=== PATIENT | female | born 1995 | race Caucasian/White ===

== ENCOUNTER 2017-10-02 14:39 | Outpatient (CLI) | payer OTHER ==
[~2017-10-02] VITALS: Ht 165.1 cm; Wt 101.2 kg
--- NOTE | 2017-10-02 16:13 | PN ---
Triage Information Date/Time Reason for visit: Uterine contractions Weeks of Gestation 39 /Para 1/0 Hypertention: none Objective Heart Rate: 140's Contractions: None Disposition: Discharge Assessment/Plan No cervical change. No CTXs If BPP 8/8 she can be discharge and followed up in the clinic FARIHA NO M.D. Oct 02, 2017 16:13
[2017-10-02 16:17] VITALS: Ht 165.1 cm; Wt 101.2 kg
--- NOTE | 2017-10-02 16:56 | RADRPT ---
PROCEDURE: US biophysical profile. CLINICAL INDICATION: Decreased motion. The patient in labor. TECHNIQUE: Multiple sonographic images of the uterus were obtained. The images were revi ewed on a PACS workstation. COMPARISON: No prior studies are available for comparison. FINDINGS: There is a single live intrauterine gestation. heart rate is 137 beats per minute. The position is cephalic. The placenta is right lateral grade II with no abruption or previa. The BENITEZ is 13.3 cm. (Normal = 5-20 cm.) Breathing Movement: 2 Gross Body Movement: 2 Tone: 2 Qualitative Amniotic Fluid Volume: 2 TOTAL: 8 IMPRESSION: 1. The biophysical score is 8/8. RPTAT: QQ .Omar Morales MD, Date Time Electronically viewed and signed by .Omar Morales MD, on 10/02/2017 16:55 .R/
[2017-10-03] MEDS ORDERED: PREN-17 PO (04:42)
== END 2017-10-02 17:25 | disposition home or self-care (01) ==
LOC: OBG 14:39 → OBT 14:39 → L-D 14:41 → OBT 17:25 → UNDOADMIN 10-03 04:29 → L-D 10-03 04:29
PROVIDERS: ATTEND Obstetrics & Gynecology
DX: O62.9 Abnormality of forces of labor, unspecified (principal); Z3A.39 39 weeks gestation of pregnancy
CPT/HCPCS: 76818; Z7500; G0463

== ENCOUNTER 2017-10-03 03:53 | Inpatient (IN) | payer OTHER ==
[~2017-10-03] VITALS: Ht 165.1 cm; Wt 101.5 kg
[2017-10-03 04:16] VITALS: BP 126/78; PULSE 74; RESP 20
[2017-10-03] MEDS ORDERED: CARBOPROST 250 MCG INJ IM PRN ×2 (04:30→21:30)
[2017-10-03] MEDS ORDERED: OXYTOCIN 30 UNITS/LR 500 ML IV SCH ×3 (04:30→10:30)
[2017-10-03] MEDS ORDERED: MISOPROSTOL 200 MCG TAB PR PRN ×2 (04:30→21:30)
[2017-10-03] MEDS ORDERED: BUTORPHANOL 2 MG INJ IV PRN (04:30)
[2017-10-03] MEDS ORDERED: IBUPROFEN 600 MG TAB PO PRN (04:30)
[2017-10-03] MEDS ORDERED: METHYLERGONOVINE 0.2 MG INJ IM PRN ×2 (04:30→21:30)
[2017-10-03] MEDS ORDERED: OXYTOCIN 30 UNITS/LR 500 ML IV PRN ×2 (04:30→21:30)
[2017-10-03] MEDS ORDERED: AMPICILLIN 2 GM/NS (PMX) 100 ML IV ONE (04:30)
[2017-10-03] MEDS ORDERED: LIDOCAINE 1% (MPF) 30 ML INJ INJ PRN (04:30)
[2017-10-03] MEDS: LACTATED RINGER'S 1,000 ML IV SCH ×3 (04:40→20:18)
[2017-10-03] MEDS ORDERED: PREN-17 PO (04:42)
[2017-10-03 04:50] LABS: BASOPHIL # 0.1 10^3/ul (0.0-0.1); BASOPHILS % 0.6 % (0.0-2.0); EOSINOPHILS # 0.2 10^3/ul (0.0-0.5); HEMATOCRIT 37.9 % (37.0-47.0); HEMOGLOBIN 12.9 g/dl (12.0-16.0); LYMPHOCYTES # 1.6 10^3/ul (0.8-2.9); MEAN CORPUSCULAR HEMOGLOBIN 29.5 pg (29.0-33.0); MEAN CORPUSCULAR VOLUME 86.7 fl (82.0-101.0); MEAN PLATELET VOLUME 10.6 fl (7.4-10.4); MONOCYTES % 8.9 % (0.0-11.0); NEUTROPHIL # 8.5 10^3/ul (1.6-7.5); NEUTROPHILS % 72.6 % (39.0-77.0); PLATELET COUNT 204 10^3/UL (140-415); RED BLOOD COUNT 4.37 10^6/ul (4.20-5.40); RED CELL DISTRIBUTION WIDTH 12.2 % (11.5-14.5); WHITE BLOOD COUNT 11.7 10^3/ul (4.8-10.8)
--- NOTE | 2017-10-03 04:58 | HP ---
Date/Time of Note Date/Time of Note DATE: 10/03/17 TIME: 04:57 OB - History Hx of Present Estimated Due Date: Oct 09, 2017 : 1 Para: 0 Care: Good Care Obstetrical Complications: None Medical Complications: None Past Family/Social History * Past Medical, Surgical, Family and Obstetric Histories reviewed from chart. OB Admission Exam Vital Signs Vital Signs Vital Signs Date Time Temp Pulse Resp B/P Pulse Ox O2 Delivery O2 Flow Rate FiO2 10/03/17 04:16 98.3 74 20 126/78 Room Air Physical Exam HEENT: WNL Heart: Rhythm Normal Lungs: Clear Abdomen: WNL Extremities: Normal Cervical Dilatation: 4cm Effacement: 100% Station: -2 Membranes: Intact Accelerations: Accelerations Present Decelerations: No Decelerations Varibility: Moderate Contractions on Admission: < 5 Minutes Apart Last 72 hours Lab Results CBC & BMP 10/03/17 04:35 OB Assessment/Plan Reason for admission: active labor Plan: Expectant Management CANDI NICK Oct 03, 2017 04:58
[2017-10-03] MEDS ORDERED: LACTATED RINGER'S 1,000 ML IV PRN (05:00)
--- NOTE | 2017-10-03 05:05 | TRIAGE ---
OB Triage Datetime Report Generated by CPN: 10/03/2017 05:05 Datetime: 10/03/2017 04:04 Stage of : OB Triage Maternal Assessment Level of Consciousness: Fully Conscious Headache: Denies Blurred Vision: No Respiratory Effort: Unlabored Nausea/Vomiting: Denies RUQ Epigastric Pain: Denies Facial Edema: None Labor Evaluation Frequency: lpaced Monitor Mode: External Quality: Moderate Resting Tone [place]: Relaxed Heart Rate FHR Baseline Rate: 130 Monitor Mode: External US Pain Assessment Pain Scale: 7 Pain Presence: Intermittent Pain Type: Contraction Pain Location: Abdomen Vaginal Exam Dilatation (cms): 4.0 Effacement (%): 90 Station: -2 Exam By: Divine galindo Membrane Status: Intact Vaginal Bleeding: Scant Cervix, Consistency: Soft Cervix, Position: Posterior Presentation 'A': Cephalic Datetime: 10/02/2017 17:35 Time of Arrival: 10/03/2017 03:50 EGA: 39.1 Arrived By: Wheelchair Arrived From: Home Chief Complaint: c/o ucs and spotting Movement: Present Contractions: Regular Time Contractions Began: 10/03/2017 01:45 Contractions: q5 Rupture of Membranes: Denies Vaginal Bleeding: Scant Vaginal Discharge: Present Recent Sexual Intercouse: Denies Abdominal Trauma: Not Applicable Patient Complaints: Contractions Time Provider Notified: 10/03/2017 04:15 Provider Notified: Dr Nation Initial Plan: EFM,SVE Datetime: 10/02/2017 16:49 Labor Evaluation Frequency: 0 Monitor Mode: External Duration (sec)2399: 0 Resting Tone [place]: Relaxed Heart Rate FHR Baseline Rate: 125 Monitor Mode: External US FHR Baseline Changes: No Baseline Change Variability: Moderate 6-25 bpm Accelerations: 15X15 Decelerations: None Category: Category I Membrane Status: Intact Datetime: 10/02/2017 16:23 Time of Arrival: 10/02/2017 14:35 EGA: 39.0 Arrived By: Ambulatory Arrived From: Home Chief Complaint: NST, BPP Movement: Present Contractions: Denies/Absent Contractions: 0 Rupture of Membranes: Denies Vaginal Bleeding: None Vaginal Discharge: Denies Recent Sexual Intercouse: Denies Abdominal Trauma: Not Applicable Patient Complaints: None Time Provider Notified: 10/02/2017 16:40 Provider Notified: LENO Initial Plan: NST reactive, Datetime: 10/02/2017 16:15 Labor Evaluation Frequency: 0 Monitor Mode: External Duration (sec)2399: 0 Resting Tone [place]: Relaxed Heart Rate FHR Baseline Rate: 125 Monitor Mode: External US FHR Baseline Changes: No Baseline Change Variability: Moderate 6-25 bpm Accelerations: 15X15 Decelerations: None Category: Category I Datetime: 10/02/2017 15:53 Vaginal Exam Dilatation (cms): 2.0 Effacement (%): 50 Station: -2 Exam By: Marcie J RN Datetime: 10/02/2017 15:41 Labor Evaluation Frequency: 5-9 Monitor Mode: External Duration (sec)2399: 50-90 Quality: Mild Pattern: Normal: <= 5 Contractions in 10 Minutes Resting Tone [place]: Relaxed Heart Rate FHR Baseline Rate: 130 Monitor Mode: External US FHR Baseline Changes: No Baseline Change Variability: Moderate 6-25 bpm Accelerations: 15X15 Decelerations: None Category: Category I Pain Assessment Pain Scale: 3 Pain Presence: Intermittent Pain Type: Ache Pain Location: Back Pain Goal: 0 Pain Relief Measures: Comfort Measures Pain Assessment Comments: Pt states she only has some pain on L side if she lays flat Datetime: 10/02/2017 15:24 Labor Evaluation Frequency: 3-5 Monitor Mode: External Duration (sec)2399: 50-60 Quality: Mild Pattern: Normal: <= 5 Contractions in 10 Minutes Resting Tone [place]: Relaxed Heart Rate FHR Baseline Rate: 120 Monitor Mode: External US FHR Baseline Changes: No Baseline Change Variability: Moderate 6-25 bpm Accelerations: 15X15 Decelerations: None Category: Category I Membrane Status: Intact Datetime: 10/02/2017 15:00 Assessment Type: Triage Maternal Assessment Level of Consciousness: Fully Conscious DTR's/Clonus: DTRs 2+; No Clonus Headache: Denies Blurred Vision: No Respiratory Effort: Unlabored; Regular Rhythm; Equal Expansion Breath Sounds, Left: Clear and Equal Breath Sounds, Right: Clear and Equal Nausea/Vomiting: Denies RUQ Epigastric Pain: Denies Lower Extremities Edema: Bilateral Lower Extremities Degree: 1+ Upper Extremities Edema: None Degree: None Facial Edema: None Fall Risk Assessment History of Falling: (0) No Secondary Diagnosis: (0) No Ambulatory Aid: (0) Bedrest/Nurse Assist IV Therapy: (0) No Gait: (0) Normal/Bedrest/Immobile Mental Status: (0) Oriented to Own Ability Fall Score: 0 Fall Risk Score Definition: No Risk: No action required Datetime: 10/02/2017 14:53 Stage of : OB Triage
[2017-10-03 05:13] LABS: INR 0.95; PARTIAL THROMBOPLASTIN TIME 25.6 Sec (25.0-35.0); PROTIME 12.7 Sec (12.2-14.2)
[2017-10-03 05:46] LABS: BARBITURATES Negative (NEGATIVE); BENZODIAZEPINES Negative (NEGATIVE); CANNABINOIDS Negative (NEGATIVE); COCAINE Negative (NEGATIVE); OPIATES Negative (NEGATIVE)
[2017-10-03] MEDS ORDERED: FENTAnyl 2MCG/ML-ROPIV 0.2% 100 ML ONE (05:52)
[2017-10-03] MEDS ORDERED: NALOXONE (0.4 MG/ML) INJ IV PRN (06:30)
[2017-10-03] MEDS: AMPICILLIN 1 GM/NS (PMX) 50 ML IV SCH ×3 (09:24→17:27)
[2017-10-03] MEDS: FENTAnyl 2MCG/ML-ROPIV 0.2% 100 ML BAG EPI SCH ×2 (09:25→12:46)
--- NOTE | 2017-10-03 19:23 | LDN ---
Date/Time of Note Date/Time of Note DATE: 10/03/17 TIME: 19:22 Delivery Summary term preg. NSD Placenta Delivered: Spontaneously Meconium: none Episiotomy: No Perineal laceration: 2 Anesthesia type: Epidural Estimated blood loss: 300 Sponge & Needle done & correct: Yes All needle counts correct: Yes Any foreign bodies felt in the: No Problems: RYAN BURR MD Oct 03, 2017 19:23
[2017-10-03] MEDS ORDERED: LACTATED RINGER'S 1,000 ML IV* SCH (21:10)
[2017-10-03 21:25] VITALS: BP 110/69; PULSE 86; RESP 18
[2017-10-03] MEDS ORDERED: WITCH HAZEL/GLYCERIN PAD PR PRN (21:30)
[2017-10-03] MEDS ORDERED: DIPHENHYDRAMINE 25 MG CAP PO PRN (21:30)
[2017-10-03] MEDS ORDERED: MAGNESIUM HYDROXIDE 30ML CUP PO PRN (21:30)
[2017-10-03] MEDS ORDERED: SENNA/DOCUSATE NA (8.6MG/50MG) TAB PO PRN (21:30)
[2017-10-03] MEDS ORDERED: BENZOCAINE 20% 56 ML SPRAY TOP PRN (21:30)
[2017-10-03] MEDS ORDERED: ACETAMINOPHEN 325 MG TAB PO PRN (21:30)
[2017-10-03] MEDS ORDERED: ZOLPIDEM 5 MG TAB PO PRN (21:30)
[2017-10-03] MEDS ORDERED: LANOLIN 7 GM TUBE TOP PRN (21:30)
[2017-10-03] MEDS ORDERED: HYDROCODONE/APAP (5/325) TAB PO PRN (21:30)
[2017-10-03] MEDS: OXYTOCIN 30 UNITS/LR 500 ML IV SCH (22:35)
[2017-10-03 23:35] VITALS: BP 113/65; PULSE 81; RESP 20
[2017-10-03] MEDS: IBUPROFEN 800 MG TAB PO SCH (23:37)
[2017-10-04 04:00] VITALS: BP 100/63; PULSE 86; RESP 18
[2017-10-04] MEDS: IBUPROFEN 800 MG TAB PO SCH ×3 (06:00→18:09)
[2017-10-04] MEDS: OXYTOCIN 30 UNITS/LR 500 ML IV SCH (07:39)
[2017-10-04 07:50] VITALS: BP 113/65; PULSE 108; RESP 20
[2017-10-04 08:59] LABS: BASOPHILS % 0.3 % (0.0-2.0); EOSINOPHILS # 0.1 10^3/ul (0.0-0.5); EOSINOPHILS % 0.8 % (0.0-7.0); HEMATOCRIT 31.6 % (37.0-47.0); HEMOGLOBIN 10.6 g/dl (12.0-16.0); LYMPHOCYTES # 1.5 10^3/ul (0.8-2.9); LYMPHOCYTES % 9.1 % (15.0-51.0); MEAN CORPUSCULAR HEMOGLOBIN 29.2 pg (29.0-33.0); MEAN CORPUSCULAR HGB CONC 33.5 g/dl (32.0-37.0); MEAN CORPUSCULAR VOLUME 87.1 fl (82.0-101.0); MEAN PLATELET VOLUME 10.6 fl (7.4-10.4); MONOCYTE # 1.5 10^3/ul (0.3-0.9); MONOCYTES % 9.2 % (0.0-11.0); NEUTROPHIL # 12.7 10^3/ul (1.6-7.5); NEUTROPHILS % 79.7 % (39.0-77.0); PLATELET COUNT 183 10^3/UL (140-415); RED BLOOD COUNT 3.63 10^6/ul (4.20-5.40); RED CELL DISTRIBUTION WIDTH 12.4 % (11.5-14.5)
[2017-10-04 11:57] VITALS: BP 93/78; PULSE 101; RESP 16
[2017-10-04] MEDS ORDERED: INFLUENZA VIRUS VACCINE 0.5 ML SYG IM* ONE (12:30)
[2017-10-04 16:14] VITALS: BP 98/62; PULSE 79; RESP 16
--- NOTE | 2017-10-04 17:14 | QN ---
Documentation Comment pd1 pt doing well vss exam wnl a/p ppd1 continue care HANSA FRIED MD Oct 04, 2017 17:14
[2017-10-04 19:45] VITALS: BP 107/64; PULSE 86; RESP 18
[2017-10-05] MEDS: IBUPROFEN 800 MG TAB PO SCH ×3 (01:07→12:18)
[2017-10-05 04:00] VITALS: BP 101/60; PULSE 87; RESP 18
[2017-10-05 07:50] VITALS: BP 113/62; PULSE 94; RESP 16
--- NOTE | 2017-10-05 08:06 | DS ---
Date/Time of Note Date/Time of Note DATE: 10/05/17 TIME: 08:05 Discharge Summary Admission/Discharge Info Admit Date/Time Oct 03, 2017 at 04:42 Discharge Date/Time Discharge Diagnosis term preg. Patient Condition: Stable Hospital Course unremarkable Home Meds Reported Medications Vit No.78/Iron/FA (Prenatabs FA Tablet) 1 Each Tablet, 1 EACH PO DAILY , TAB 10/03/17 Primary Care Provider Care Physician No Primary Pending Labs Laboratory Tests Test 10/04/17 08:15 White Blood Count 16.010^3/ul (4.8-10.8) Red Blood Count 3.6310^6/ul (4.20-5.40) Hemoglobin 10.6g/dl (12.0-16.0) Hematocrit 31.6% (37.0-47.0) Mean Corpuscular Volume 87.1fl (82.0-101.0) Mean Corpuscular Hemoglobin 29.2pg (29.0-33.0) Mean Corpuscular Hemoglobin Concent 33.5g/dl (32.0-37.0) Red Cell Distribution Width 12.4% (11.5-14.5) Platelet Count 14335^3/UL (140-415) Mean Platelet Volume 10.6fl (7.4-10.4) Neutrophils % 79.7% (39.0-77.0) Lymphocytes % 9.1% (15.0-51.0) Monocytes % 9.2% (0.0-11.0) Eosinophils % 0.8% (0.0-7.0) Basophils % 0.3% (0.0-2.0) Nucleated Red Blood Cells % 0.0/100WBC (0.0-0.0) Neutrophils # 12.710^3/ul (1.6-7.5) Lymphocytes # 1.510^3/ul (0.8-2.9) Monocytes # 1.510^3/ul (0.3-0.9) Eosinophils # 0.110^3/ul (0.0-0.5) Basophils # 0.010^3/ul (0.0-0.1) Nucleated Red Blood Cells # 0.010^3/ul (0.0-0.0) RYAN BURR MD Oct 05, 2017 08:06
[2017-10-05] MEDS ORDERED: VARICELLA VACCINE LIVE/PF 1,350 UNIT/0.5 ML ML SC* ONE (09:00)
[2017-10-05] MEDS ORDERED: MEASLES,MUMPS,RUBELLA VACCINE INJ SC* ONE (09:00)
[2017-10-05] MEDS ORDERED: DIPHTH/TET/ACEL PERTUSS (ADULT) 0.5 ML VIAL IM* ONE (09:00)
[2017-10-05] MEDS ORDERED: INFLUENZA VIRUS VACCINE 0.5 ML SYG IM* ONE (11:00)
== END 2017-10-05 12:27 | disposition home or self-care (01) | DRG 775 ==
LOC: OBT 03:53 → L-D 03:54 → OBT 04:41 → L-D 04:42 → PP1 21:23
PROVIDERS: ADMIT Obstetrics & Gynecology; ATTEND Obstetrics & Gynecology
PROC: 10E0XZZ Delivery of Products of Conception, External Approach (ICD-10-PCS; principal; 2017-10-03)
PROC: 3E0234Z Introduction of Serum, Toxoid and Vaccine into Muscle, Percutaneous Approach (ICD-10-PCS; 2017-10-04)
DX: O70.1 Second degree perineal laceration during delivery (principal); Z23 Encounter for immunization; Z3A.39 39 weeks gestation of pregnancy; Z37.0 Single live birth
CPT/HCPCS: 62319; 80307; 85025; 85610; 85730; 86592; 86762; 86900; 86901; 87340; 90686; 90715; 90716; G0463; J0290; J2590; J3010; J7120

== ENCOUNTER 2018-09-28 09:15 | Emergency (ER) | END 2018-09-28 10:00 | disposition home or self-care (01) ==

== ENCOUNTER 2018-12-24 23:57 | Emergency (ER) | payer OTHER ==
[~2018-12-24] VITALS: Ht 167.6 cm; Wt 71.6 kg
[~2018-12-24 23:57] MED LIST: ACET325T33 PO; AMOX1TAB9 PO; IBUP-1542 PO; PREN-17 PO
[2018-12-25 00:04] VITALS: BP 152/96; PULSE 129; RESP 20; Ht 167.6 cm; Wt 71.6 kg
[2018-12-25] MEDS ORDERED: IBUPROFEN 600 MG TAB PO ONE (01:00)
[2018-12-25] MEDS ORDERED: HYDR-4011 PO (02:20)
[2018-12-25] MEDS ORDERED: IBUP800T48 PO (02:20)
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
== END 2018-12-25 03:03 | disposition home or self-care (01) ==
LOC: FTE 23:57
DX: S02.2XXA Fracture of nasal bones, initial encounter for closed fracture (principal); F17.210 Nicotine dependence, cigarettes, uncomplicated; Y04.0XXA Assault by unarmed brawl or fight, initial encounter; Y92.9 Unspecified place or not applicable
CPT/HCPCS: 70486; Z7502; Z7610

== ENCOUNTER 2019-07-06 01:10 | Emergency (ER) | payer OTHER ==
[~2019-07-06] VITALS: Ht 170.2 cm; Wt 70.8 kg
[~2019-07-06 01:10] MED LIST changes: +ACET500C5 PO; +HYDR-4011 PO; +IBUP800T48 PO; +ONDA4TAB14 PO
[2019-07-06 01:18] VITALS: BP 115/79; PULSE 86; RESP 20; Ht 170.2 cm; Wt 70.8 kg
[2019-07-06] MEDS ORDERED: ONDANSETRON (ODT) 4 MG TAB ODT STA (04:15)
[2019-07-06] MEDS ORDERED: ACETAMINOPHEN 500 MG TAB PO STA (04:15)
== END 2019-07-06 05:51 | disposition home or self-care (01) ==
LOC: FTE 01:10
DX: R07.0 Pain in throat (principal)
CPT/HCPCS: Z7502; Z7610; 99283